=== PATIENT | female | born 1985 | race Caucasian/White ===

== ENCOUNTER 2021-01-11 21:28 | Emergency (ER) | payer OTHER, SELFPAY ==
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
[2021-01-11 21:31] VITALS: BP 144/82; PULSE 82; RESP 16; TEMP 36.2; O2SAT 100
[2021-01-11 22:17] VITALS: BP 144/72; PULSE 77; RESP 18; TEMP 36.7; O2SAT 100
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
[2021-01-12 01:55] VITALS: BP 138/75; PULSE 76; RESP 16; TEMP 36.7; O2SAT 99
== END 2021-01-12 01:57 | disposition home or self-care (01) ==
PROVIDERS: Emergency Provider Emergency Medicine
DX: S16.1XXA Strain of muscle, fascia and tendon at neck level, initial encounter (principal); R51.9 Headache, unspecified; M54.9 Dorsalgia, unspecified; V43.52XA Car driver injured in collision with other type car in traffic accident, initial encounter; Y92.410 Unspecified street and highway as the place of occurrence of the external cause
CPT/HCPCS: 70450; 72070; 72100; 72125; 81025; 99284